=== PATIENT | male | born 2005 | race Caucasian/White ===

== ENCOUNTER 2025-05-25 15:43 | Outpatient (CLI) | payer BC | END 2025-05-25 15:44 | disposition home or self-care (01) | LOC: CSHWCC 15:43 | PROVIDERS: ATTEND Nurse Practitioner Family | DX: T25.211D Burn of second degree of right ankle, subsequent encounter (principal); T24.232D Burn of second degree of left lower leg, subsequent encounter; T24.231D Burn of second degree of right lower leg, subsequent encounter | CPT/HCPCS: 16020 ==

== ENCOUNTER 2025-06-02 11:27 | Outpatient (CLI) | payer BC | END 2025-06-02 11:28 | disposition home or self-care (01) | LOC: CSHWCC 11:27 | PROVIDERS: ATTEND Nurse Practitioner Family | DX: T25.211D Burn of second degree of right ankle, subsequent encounter (principal); T24.232D Burn of second degree of left lower leg, subsequent encounter; T24.231D Burn of second degree of right lower leg, subsequent encounter | CPT/HCPCS: 11042; 99213; G0463 ==

== ENCOUNTER 2025-06-09 11:16 | Outpatient (CLI) | payer BC | END 2025-06-09 11:17 | disposition home or self-care (01) | LOC: CSHWCC 11:16 | PROVIDERS: ATTEND Nurse Practitioner Family | DX: T25.211D Burn of second degree of right ankle, subsequent encounter (principal); T24.232D Burn of second degree of left lower leg, subsequent encounter; L97.322 Non-pressure chronic ulcer of left ankle with fat layer exposed; L08.9 Local infection of the skin and subcutaneous tissue, unspecified | CPT/HCPCS: 11042; 87070; 87077; 87186; 87205; 97605; 99213; G0463 ==

== ENCOUNTER 2025-06-13 09:04 | Outpatient (CLI) | payer BC | END 2025-06-13 09:05 | disposition home or self-care (01) | LOC: CSHWCC 09:04 | PROVIDERS: ATTEND Nurse Practitioner Family | DX: T25.211D Burn of second degree of right ankle, subsequent encounter (principal); T24.232D Burn of second degree of left lower leg, subsequent encounter; L97.322 Non-pressure chronic ulcer of left ankle with fat layer exposed; L08.9 Local infection of the skin and subcutaneous tissue, unspecified | CPT/HCPCS: 99212; G0463 ==

== ENCOUNTER 2025-06-20 09:59 | Outpatient (CLI) | payer BC | END 2025-06-20 10:00 | disposition home or self-care (01) | LOC: CSHWCC 09:59 | PROVIDERS: ATTEND Nurse Practitioner Family | DX: T25.211D Burn of second degree of right ankle, subsequent encounter (principal); T24.232D Burn of second degree of left lower leg, subsequent encounter; L97.322 Non-pressure chronic ulcer of left ankle with fat layer exposed; L08.9 Local infection of the skin and subcutaneous tissue, unspecified ==

== ENCOUNTER 2025-06-23 08:50 | Outpatient (CLI) | payer BC | END 2025-06-23 08:51 | disposition home or self-care (01) | LOC: CSHWCC 08:50 | PROVIDERS: ATTEND Nurse Practitioner Family | DX: T25.211D Burn of second degree of right ankle, subsequent encounter (principal); T24.232D Burn of second degree of left lower leg, subsequent encounter; L97.322 Non-pressure chronic ulcer of left ankle with fat layer exposed; L08.9 Local infection of the skin and subcutaneous tissue, unspecified | CPT/HCPCS: 99213; G0463 ==

== ENCOUNTER 2025-06-30 09:53 | Outpatient (CLI) | payer BC | END 2025-06-30 09:54 | disposition home or self-care (01) | LOC: CSHWCC 09:53 | PROVIDERS: ATTEND Nurse Practitioner Family | DX: T25.211D Burn of second degree of right ankle, subsequent encounter (principal); T24.232D Burn of second degree of left lower leg, subsequent encounter; L97.322 Non-pressure chronic ulcer of left ankle with fat layer exposed; L08.9 Local infection of the skin and subcutaneous tissue, unspecified | CPT/HCPCS: 11042; 99213; G0463 ==

== ENCOUNTER 2025-07-05 14:24 | Outpatient (CLI) | payer BC | END 2025-07-05 14:25 | disposition home or self-care (01) | LOC: CSHWCC 14:24 | PROVIDERS: ATTEND Nurse Practitioner Family | DX: T25.211D Burn of second degree of right ankle, subsequent encounter (principal); T24.232D Burn of second degree of left lower leg, subsequent encounter; L97.322 Non-pressure chronic ulcer of left ankle with fat layer exposed | CPT/HCPCS: 11042 ==

== ENCOUNTER 2025-07-18 09:38 | Outpatient (CLI) | payer BC | END 2025-07-18 09:39 | disposition home or self-care (01) | LOC: CSHWCC 09:38 | PROVIDERS: ATTEND Nurse Practitioner Family | DX: T25.211D Burn of second degree of right ankle, subsequent encounter (principal); T24.232D Burn of second degree of left lower leg, subsequent encounter; L97.322 Non-pressure chronic ulcer of left ankle with fat layer exposed; L08.9 Local infection of the skin and subcutaneous tissue, unspecified | CPT/HCPCS: 11042; 97605; 99213; G0463 ==

== ENCOUNTER 2025-07-21 09:46 | Outpatient (CLI) | payer BC | END 2025-07-21 09:47 | disposition home or self-care (01) | LOC: CSHWCC 09:46 | PROVIDERS: ATTEND Nurse Practitioner Family | DX: T25.211D Burn of second degree of right ankle, subsequent encounter (principal); T24.232D Burn of second degree of left lower leg, subsequent encounter; L97.322 Non-pressure chronic ulcer of left ankle with fat layer exposed; L08.9 Local infection of the skin and subcutaneous tissue, unspecified | CPT/HCPCS: 97605; 99213; G0463 ==

== ENCOUNTER 2025-07-25 09:05 | Outpatient (CLI) | payer BC | END 2025-07-25 09:06 | disposition home or self-care (01) | LOC: CSHWCC 09:05 | PROVIDERS: ATTEND Nurse Practitioner Family | DX: T25.211D Burn of second degree of right ankle, subsequent encounter (principal); T24.232D Burn of second degree of left lower leg, subsequent encounter; L97.322 Non-pressure chronic ulcer of left ankle with fat layer exposed; L08.9 Local infection of the skin and subcutaneous tissue, unspecified | CPT/HCPCS: 11042; 97605 ==

== ENCOUNTER 2025-07-28 09:08 | Outpatient (CLI) | payer BC | END 2025-07-28 09:09 | disposition home or self-care (01) | LOC: CSHWCC 09:08 | PROVIDERS: ATTEND Nurse Practitioner Family | DX: T25.211D Burn of second degree of right ankle, subsequent encounter (principal); T24.232D Burn of second degree of left lower leg, subsequent encounter; L97.322 Non-pressure chronic ulcer of left ankle with fat layer exposed; L08.9 Local infection of the skin and subcutaneous tissue, unspecified | CPT/HCPCS: 97607; 99213; G0463 ==

== ENCOUNTER 2025-08-04 09:21 | Outpatient (CLI) | payer BC | END 2025-08-04 09:22 | disposition home or self-care (01) | LOC: CSHWCC 09:21 | PROVIDERS: ATTEND Nurse Practitioner Family | DX: T25.211D Burn of second degree of right ankle, subsequent encounter (principal); T24.232D Burn of second degree of left lower leg, subsequent encounter; L97.322 Non-pressure chronic ulcer of left ankle with fat layer exposed; L08.9 Local infection of the skin and subcutaneous tissue, unspecified | CPT/HCPCS: 11042; 97607 ==

== ENCOUNTER 2025-08-11 10:07 | Outpatient (CLI) | payer BC | END 2025-08-11 10:08 | disposition home or self-care (01) | LOC: CSHWCC 10:07 | PROVIDERS: ATTEND Nurse Practitioner Family | DX: T25.211D Burn of second degree of right ankle, subsequent encounter (principal); T24.232D Burn of second degree of left lower leg, subsequent encounter; L97.322 Non-pressure chronic ulcer of left ankle with fat layer exposed; L08.9 Local infection of the skin and subcutaneous tissue, unspecified | CPT/HCPCS: 11042 ==

== ENCOUNTER 2025-08-25 09:27 | Outpatient (CLI) | payer BC | END 2025-08-25 09:28 | disposition home or self-care (01) | LOC: CSHWCC 09:27 | PROVIDERS: ATTEND Nurse Practitioner Family | DX: T25.211D Burn of second degree of right ankle, subsequent encounter (principal); T24.232D Burn of second degree of left lower leg, subsequent encounter; L97.322 Non-pressure chronic ulcer of left ankle with fat layer exposed; L08.9 Local infection of the skin and subcutaneous tissue, unspecified | CPT/HCPCS: 99212; G0463 ==